=== PATIENT | female | born 1945 | race Caucasian/White ===

== ENCOUNTER → 2018-11-14 10:18 | Outpatient (CLI) | payer MEDICARE, OTHER, SELFPAY ==
--- NOTE | 2018-11-14 10:26 | US_ITS ---
STUDY: RENAL ULTRASOUND - COMPLETE REASON FOR EXAM: Female, 73 years old. Urinary tract infection TECHNIQUE: Ultrasound evaluation of the kidneys was performed with real-time and static arriaga-scale imaging. COMPARISON: None. FINDINGS: RIGHT KIDNEY: Normal location of the right kidney, which is normal in size. The right kidney measures 10.7 cm. There is a normal cortex of the right kidney. The renal cortex measures 1.3 cm. There is no right renal mass or cyst. There are no right renal calculi. There is no right hydronephrosis. DISTAL RIGHT URETER: There is non-visualization of the distal right ureter. There is no demonstrated right ureterovesical junction calculus. There is a visualized right ureteral jet. LEFT KIDNEY: Normal location of the left kidney, which is normal in size. The left kidney measures 11 cm. There is a normal cortex of the left kidney. The renal cortex measures 1.9 cm. There is no left renal mass or cyst. There are no left renal calculi. There is no left hydronephrosis. DISTAL LEFT URETER: There is non-visualization of the distal left ureter. There is no demonstrated left ureterovesical junction calculus. There is a visualized left ureteral jet. BLADDER: The distended urinary bladder has a volume of 188 ml. The empty urinary bladder has a volume of 71.4 ml. There is a normal wall thickness of the distended urinary bladder. There is no demonstrated mass within the urinary bladder. There are no demonstrated bladder calculi. There is post void residual of 71.4 mL. US/Kidney and Bladder IMPRESSION: Normal ultrasound of the kidneys Urinary retention with bladder postvoid residual of 71.4 mL Electronically Signed: Farhan Norton, at 23:28 EDT Tel , Service support ,
== END ==
PROVIDERS: Family Provider Family Medicine; PCP Family Medicine; Referring Provider Urology; Visit Provider Urology
DX: N39.0 Urinary tract infection, site not specified (principal)
CPT/HCPCS: 76770

== ENCOUNTER → 2018-12-19 08:07 | Outpatient (CLI) | payer MEDICARE, OTHER, SELFPAY ==
--- NOTE | 2018-12-19 08:08 | CT_ITS ---
STUDY: CT ABDOMEN AND PELVIS WITH CONTRAST REASON FOR EXAM: Female, 73 years old. Hematuria, frequent UTIs RADIATION DOSAGE (If Supplied By Facility): CTDIvol = ( 15.82 ) mGy, DLP = ( 2143.35 ) mGycm TECHNIQUE: Transaxial images were obtained from the dome of the diaphragm to the symphysis pubis without oral contrast. 100 IV Isovue 300 was administered. Sagittal and coronal images were reconstructed. Individualized dose optimization techniques were used for this CT. COMPARISON: None. FINDINGS: The visualized lung bases are unremarkable. The visualized portions of the heart are within normal limits. There is decreased attenuation of the liver consistent with steatosis. Normal gallbladder and extrahepatic biliary system. Normal spleen. Normal pancreas. Normal bilateral adrenal glands. Normal right kidney. Normal left kidney. Normal visualized stomach. Normal small intestine. Retained stool noted in the colon, scattered sigmoid diverticulosis, no CT evidence of acute diverticulitis. There is non-visualization of the appendix. There is diffuse atherosclerotic calcification of the abdominal aorta, without a demonstrated aneurysm. Normal inferior vena cava. Normal retroperitoneum. Normal urinary bladder. Uterus is still present, the endometrium cannot be accurately evaluated with CT. No suspicious cystic mass or free fluid. Normal abdominal wall. There are diffuse degenerative changes of the visualized lumbar spine, and pelvis. Replaced right hip joint free of complication CT/Abdomen/Pelvis WITH Contrast IMPRESSION: Fatty liver, no discrete lesion Scattered sigmoid diverticulosis, retained stool noted in the colon, no CT evidence of acute inflammatory process Uterus is still present, the endometrium cannot be accurately evaluated with CT. Electronically Signed: Danyel Penn MD at 10:15 EDT , Service support ,
[2018-12-19 08:30] LABS: CREATININE FINGERSTICK 0.7 mg/dL (0.55-1.02)
== END ==
PROVIDERS: Family Provider Family Medicine; PCP Family Medicine; Referring Provider Urology; Visit Provider Urology
DX: R31.9 Hematuria, unspecified (principal)
CPT/HCPCS: 74177; Q9967

== ENCOUNTER 2019-04-07 09:59 | Day surgery (SDC) | payer MEDICARE, OTHER, SELFPAY ==
[2018-12-27 15:27] VITALS: BMI 29.3
[2019-03-01 11:51] VITALS: BMI 29.3
--- NOTE | 2019-03-01 22:24 | PCM.HPOB.BLA ---
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 Is patient in pain?: No Allergies No Known Allergies Allergy (Verified 03/01/19 11:51) Medications aspirin 81 mg chewable tablet 81 mg PO DAILY 12/27/18 [History Confirmed 03/01/19] clobetasol 0.05 % topical ointment 1 applic TOPICAL QHS #30 g 12/27/18 [Rx Confirmed 03/01/19] hydrochlorothiazide 25 mg tablet 25 mg PO DAILY 12/27/18 [History Confirmed 03/01/19] levothyroxine 100 mcg tablet 100 mcg PO DAILY 12/27/18 [History Confirmed 03/01/19] naproxen 500 mg tablet 500 mg PO BID 12/27/18 [History Confirmed 03/01/19] Is last menstrual period known: No Post menopausal: Yes Patient : No : No [facility] Medical History Hypertension (Chronic) Surgical History Carpal tunnel syndrome, bilateral (Acute) History of total hip replacement (Acute) Status post left foot surgery (Acute) Social History (Updated 03/01/19 @ 21:30 by Latanya Jennings MD) Smoking Status: Never smoker alcohol intake: never substance use type: does not use caffeine: Yes what type of physical activity do you participate in: walking seatbelt use: always do you feel safe at home: Yes additional social history: Leon- Works at [employer] Patient is retired HPI [facility] BSO: Details: JOLLY CORDOVA is a 74 year old who presents for pelvic organ prolapse. she is having a combo case with dr woods Pregancy History 3 Elective abortions Hx Para 3 Spontaneous abortions Hx # Term Pregnancies Ectopic pregnancies Hx # Pregnancies Multiple births # of living children Past Pregnancies Del. Date Name GA/Weeks Outcome Route Bth Weight Infant Gen Labor Lgth Anesthesia Del Locatn Provider FOB Unknown 1966 Kyler live - full term Unknown 1968 Leon Martinez live - full term Unknown 1976 Alexis live - full term ROS Const Constitutional: Denies fatigue, fever(s), headache(s), increased appetite, poor appetite, weight gain or weight loss ENT ENT: Denies dizziness or dry mouth Cardio Card: Denies chest pain Resp Resp: Denies cough or dyspnea GI GI: Reports as per HPI; denies abdominal pain, constipation, nausea or vomiting : Reports as per HPI, urinary frequency and urinary urgency; denies difficulty urinating, painful urination, pelvic pain, urinary incontinence, urinary hesitancy, vaginal discharge, vaginal dryness, vaginal odor or vaginal itching Musc Musc: Reports joint pain Skin Skin/Breast: Denies hair loss, change in hair, dry skin, breast lump, breast pain or breast skin changes Neuro Neuro: Denies dizziness Psych Psych: Denies anxiety or depression Endo Endo: Denies cold intolerance, excessive sweating, heat intolerance or increased thirst Shady/Lymph Hematologic/Lymphatic: Denies easy bleeding, Denies easy bruising, Denies enlarged lymph nodes Exam Const General: cooperative, healthy appearing, comfortable, no acute distress, well developed Nutritional Appearance: average body habitus Orientation: alert [facility] Head: normal to inspection, normocephalic Ears: hearing grossly normal bilaterally, external ears normal Nose: external nose normal, nares normal Face and sinus: normal facial exam Neck Neck: normal visual inspection, no lymphadenopathy, trachea midline Thyroid: thyroid normal Chest Chest palpation & inspection: normal inspection of the chest Resp Effort & Inspection: normal respiratory effort Auscultation: clear to auscultation bilaterally Cardio Rate: regular rate Rhythm: regular rhythm Heart Sounds: S1 normal, S2 normal GI Inspection: normal to inspection, non-distended Palpation: soft, no hepatosplenomegaly General: bladder normal to palpation External Female Exam: normal external appearance, normal appearance of the urethra Urethra: normal appearance of the urethra Speculum Exam - Vagina: normal appearance of the vagina, normal vaginal discharge Speculum Exam - Cervix: normal appearance of the cervix, nontender Bimanual Exam- Vagina & Uterus: bladder normal to palpation, No cervical tenderness Bimanual Exam- Adnexa, other: normal adnexae, adnexae mobile, no adnexal masses, rectocele, cystocele (grade III), vaginal apex descent (grade III) Pelvic Support: cystocele (grade III), rectocele, vaginal apex descent (grade III) Musc Cervical Spine: other Other: gross motor intact no deficits, full bilateral strength Skin General: no rashes or lesions noted Neuro General: alert, awake, moves all extremities, no focal motor deficits Motor: muscle tone normal throughout Extrem General: normal to inspection, no pedal edema Psych Appearance: grossly normal Mental Status: mental status grossly normal Affect: normal affect Speech and Movement: speech and movement normal Assessment & Plan Problems 1. Incomplete uterovaginal prolapse N81.2 combo case with Azael [facility] BSO Plan After discussing the patient's diagnosis and treatment plan options, patient wishes to proceed with surgical management. I have discussed with the patient the risks, benefits, and alternatives of the procedure which include but are not limited to risks of anesthesia, bleeding, infection, possible damage to bowel, bladder, or surrounding vasculature which could lead to additional surgery to evaluate any complications. Patient agrees to procedure and wishes to proceed. ACOG/uptodate references given for additional information regarding procedure. Coding Level of Care Code No Charge Diagnoses Incomplete uterovaginal prolapse N81.2 ??Prolapse type: incomplete uterovaginal prolapse
--- NOTE | 2019-04-01 04:46 | PCM.HPOB.BLA ---
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 Is patient in pain?: No Allergies No Known Allergies Allergy (Verified 03/01/19 11:51) Medications aspirin 81 mg chewable tablet 81 mg PO DAILY 12/27/18 [History Confirmed 03/01/19] clobetasol 0.05 % topical ointment 1 applic TOPICAL QHS #30 g 12/27/18 [Rx Confirmed 03/01/19] hydrochlorothiazide 25 mg tablet 25 mg PO DAILY 12/27/18 [History Confirmed 03/01/19] levothyroxine 100 mcg tablet 100 mcg PO DAILY 12/27/18 [History Confirmed 03/01/19] naproxen 500 mg tablet 500 mg PO BID 12/27/18 [History Confirmed 03/01/19] Is last menstrual period known: No Post menopausal: Yes Patient : No : No [facility] Medical History Hypertension (Chronic) Surgical History Carpal tunnel syndrome, bilateral (Acute) History of total hip replacement (Acute) Status post left foot surgery (Acute) Social History (Updated 03/01/19 @ 21:30 by Latanya Jennings MD) Smoking Status: Never smoker alcohol intake: never substance use type: does not use caffeine: Yes what type of physical activity do you participate in: walking seatbelt use: always do you feel safe at home: Yes additional social history: Leon- Works at [employer] Patient is retired HPI [facility] BSO: Details: JOLLY CORDOVA is a 74 year old who presents for pelvic organ prolapse. she is having a combo case with dr woods Pregancy History 3 Elective abortions Hx Para 3 Spontaneous abortions Hx # Term Pregnancies Ectopic pregnancies Hx # Pregnancies Multiple births # of living children Past Pregnancies Del. Date Name GA/Weeks Outcome Route Bth Weight Gen Labor Lgth Anesthesia Del Locatn Provider FOB Unknown 1966 Kyler live - full term Unknown 1968 Leon Martinez live - full term Unknown 1976 Alexis live - full term ROS Const Constitutional: Denies fatigue, fever(s), headache(s), increased appetite, poor appetite, weight gain or weight loss ENT ENT: Denies dizziness or dry mouth Cardio Card: Denies chest pain Resp Resp: Denies cough or dyspnea GI GI: Reports as per HPI; denies abdominal pain, constipation, nausea or vomiting : Reports as per HPI, urinary frequency and urinary urgency; denies difficulty urinating, painful urination, pelvic pain, urinary incontinence, urinary hesitancy, vaginal discharge, vaginal dryness, vaginal odor or vaginal itching Musc Musc: Reports joint pain Skin Skin/Breast: Denies hair loss, change in hair, dry skin, breast lump, breast pain or breast skin changes Neuro Neuro: Denies dizziness Psych Psych: Denies anxiety or depression Endo Endo: Denies cold intolerance, excessive sweating, heat intolerance or increased thirst Shady/Lymph Hematologic/Lymphatic: Denies easy bleeding, Denies easy bruising, Denies enlarged lymph nodes Exam Const General: cooperative, healthy appearing, comfortable, no acute distress, well developed Nutritional Appearance: average body habitus Orientation: alert [facility] Head: normal to inspection, normocephalic Ears: hearing grossly normal bilaterally, external ears normal Nose: external nose normal, nares normal Face and sinus: normal facial exam Neck Neck: normal visual inspection, no lymphadenopathy, trachea midline Thyroid: thyroid normal Chest Chest palpation & inspection: normal inspection of the chest Resp Effort & Inspection: normal respiratory effort Auscultation: clear to auscultation bilaterally Cardio Rate: regular rate Rhythm: regular rhythm Heart Sounds: S1 normal, S2 normal GI Inspection: normal to inspection, non-distended Palpation: soft, no hepatosplenomegaly General: bladder normal to palpation External Female Exam: normal external appearance, normal appearance of the urethra Urethra: normal appearance of the urethra Speculum Exam - Vagina: normal appearance of the vagina, normal vaginal discharge Speculum Exam - Cervix: normal appearance of the cervix, nontender Bimanual Exam- Vagina & Uterus: bladder normal to palpation, No cervical tenderness Bimanual Exam- Adnexa, other: normal adnexae, adnexae mobile, no adnexal masses, rectocele, cystocele (grade III), vaginal apex descent (grade III) Pelvic Support: cystocele (grade III), rectocele, vaginal apex descent (grade III) Musc Cervical Spine: other Other: gross motor intact no deficits, full bilateral strength Skin General: no rashes or lesions noted Neuro General: alert, awake, moves all extremities, no focal motor deficits Motor: muscle tone normal throughout Extrem General: normal to inspection, no pedal edema Psych Appearance: grossly normal Mental Status: mental status grossly normal Affect: normal affect Speech and Movement: speech and movement normal Assessment & Plan Problems 1. Incomplete uterovaginal prolapse N81.2 combo case with Azael [facility] BSO Plan After discussing the patient's diagnosis and treatment plan options, patient wishes to proceed with surgical management. I have discussed with the patient the risks, benefits, and alternatives of the procedure which include but are not limited to risks of anesthesia, bleeding, infection, possible damage to bowel, bladder, or surrounding vasculature which could lead to additional surgery to evaluate any complications. Patient agrees to procedure and wishes to proceed. ACOG/uptodate references given for additional information regarding procedure. Coding Level of Care Code No Charge Diagnoses Incomplete uterovaginal prolapse N81.2 ??Prolapse type: incomplete uterovaginal prolapse
[2019-04-07] VITALS (11 sets, daily range): BP systolic 107–133; BP diastolic 55–79; PULSE 65–85; RESP 16–18; TEMP 36.2–37.6; O2SAT 96–100; BMI 29.5; BMI 29.9
--- NOTE | 2019-04-07 10:15 | EKG12_ITS ---
Test Reason : PRE OP Blood Pressure : / mmHG Vent. Rate : 074 BPM Atrial Rate : 074 BPM P-R Int : 134 ms QRS Dur : 090 ms QT Int : 408 ms P-R-T Axes : 062 020 062 degrees QTc Int : 452 ms Normal sinus rhythm Nonspecific ST and T wave abnormality Abnormal ECG No previous ECGs available Confirmed by VALARIE CARROLL, SHAAN ([id number]), food editor ARSEN HALL ([id number]) on 04/18/2019 1:39:19 PM Referred By: Latanya Jennings Confirmed By:ADOLFO SHEPPARD MD
[2019-04-07 10:37] LABS: Hematocrit 43.4 % (37-47); Hemoglobin 14.3 g/dL (12.0-15.0); Mean Corp Hgb Conc 32.9 g/dL (32-36); Mean Corpuscular Hgb 30.3 pg (27.0-32.0); Mean Corpuscular Volume 91.9 fL (81-99); Mean Platelet Vol. 10.1 fl (6.2-12.0); Platelet Count 308 K/mm3 (150-450); RBC Distribution Width SD 47.6 fl (35.1-43.9); Red Blood Count 4.72 M/mm3 (4.2-5.4); White Blood Count 10.2 K/mm3 (4.4-11.0)
[2019-04-07 11:00] LABS: AST(SGOT) 25 U/L (15-37); Alanine Aminotransfer ALT/SGPT 29 U/L (13-56); Albumin, Serum 4.2 g/dL (3.2-5.0); Alkaline Phosphatase 66 U/L (45-117); Anion Gap 7 (5-15); BUN 16 mg/dL (7-18); BUN/Creat Ratio 13.4 RATIO (10-20); Bilirubin, Direct 0.11 mg/dL (0.00-0.30); Calcium,Total 9.2 mg/dL (8.5-10.1); Chloride 104 mmol/L (98-107); Creatinine, Serum 1.19 mg/dL (0.55-1.02); EST Glomerular Filtration Rate 47 mL/min (>60); Est Glom Filt Rate - Afr Amer 57 mL/min (>60); Globulin 4.2 g/dL (2.2-4.2); Glucose 84 mg/dL (74-106); Potassium 3.6 mmol/L (3.5-5.1); Protein, Total 8.4 g/dL (6.4-8.2); Sodium Level 138 mmol/L (136-145); Thyroid Stim Hormone (TSH) 0.83 uIU/mL (0.358-3.74)
[2019-04-07] MEDS: Gabapentin 600 MG Tablet PO (11:03)
[2019-04-07] MEDS: Acetaminophen 500 MG Tablet 1000 MG PO ×3 (11:03→23:50)
[2019-04-07 11:16] LABS: Bedside Glucose 92 mg/dL (70-110)
[2019-04-07] MEDS: Magnesium Sulfate 4gm/100mL 4 GM/100 ML IV.SOLN. IV (11:20)
[2019-04-07] MEDS: Lactated Ringers 1,000 ML 100 ML IV ×2 (11:20→14:15)
--- NOTE | 2019-04-07 12:00 | HYST_PTH ---
PATIENT: JOLLY CORDOVA [place] [facility] [place][id number] AGE/SX: 74/F ROOM: RE04/07/[address]: Dr. Latanya Jennings MD : [id number] BED: DIS: 04/08/2019 SPEC #: [id number] RECD: 04/10/19 07:38 STATUS: DIPTI REJules #: [id number] MISSY: 04/07/19 12:[address]: Latanya Jennings DEPT: SURGICAL PATHOLOGY RECD BY: Tim Choi ENTERED: 04/10/19 09:32 SP TYPE: HYSTERECT OTHR DR: MD Dr. Willian Alaniz MD Tissues: Uterus, NOS Procedures: Surgery Specimen Level V HEADER OPERATION: ERAS, vaginal hysterectomy PRE-OP DIAGNOSIS: Incomplete uterovaginal prolapse TISSUE SUBMITTED: Uterus MICROSCOPIC DIAGNOSIS Uterus, vaginal hysterectomy: Cervix - focal minimal chronic inflammation. Endometrium - weakly proliferative endometrium with cystic changes. Myometrium - focal superficial adenomyosis. - A minute submucosal leiomyoma (0.3 cm in greatest dimension). - Vascular calcifications. DARLIN:shelby 04/11/19 MICROSCOPIC DESCRIPTION Slides are reviewed. GROSS DESCRIPTION Received in fixative is one container labeled with the patient's name and designated uterus. The specimen consists of a uterus with attached cervix without fallopian tubes and ovaries measuring 9.5 x 4 x 3.2 cm and weighing 61 gm. The ectocervix is unremarkable. The cervical os is oval in contour. The endocervical canal measures 3 cm in length and is grossly unremarkable. The triangular endometrial cavity measures 2.5 x 1 cm. The hurt endometrium measures <1 cm in greatest thickness. The myometrium measures 1.2 cm in average thickness and is free of mass lesions. Belt Molder sections are submitted in six cassettes as follows: 1 - anterior cervix, 2 - posterior cervix, 3 & 4 - anterior myometrial wall, 5 & 6 - posterior myometrial wall. / AM:shelby 04/10/19 TC:5 CPT: 17662
[2019-04-07] MEDS: Lubricating Jelly 60 GM Tube 30 GM TOPICAL (12:05)
[2019-04-07] MEDS: Vasopressin 20 UNITS/ML Vial (13:30)
[2019-04-07] MEDS: Estrogens,Conj. 1 Tube 1 DOSE (13:50)
--- NOTE | 2019-04-07 14:10 | PCM.OPRPT ---
Problem List (1) Prolapse of female pelvic organs Status: Chronic Qualifiers: Comment: combo case with Azael [facility] BSO Report of Operation Date of Procedure: 04/07/19 Pre-Operative Diagnosis: prolapse Post-Operative Diagnosis: same Surgery/Procedure Performed:: tvh Description of Surgical Findings:: nl uterus, nl ovaries humanities instructor: Thalia Addison Type of Anesthesia:: General Special Medications: none Specimen's removed: uterus Drains: hassan Estimated Blood Loss (mL): 50 Fluids Replaced: crystalloid Description of Procedure: Patient was taken to the operating room and was placed under general anesthesia was prepped and draped in normal sterile fashion in the dorsal lithotomy position. Preoperative antibiotics and SCDs and Hassan catheter was placed inside the bladder. Weighted speculum was placed in the vagina and the anterior and posterior lip of the cervix was grasped with 2 Eufemia clamps and circumferentially injected with dilute vasopressin. A circumferential incision was made with a scalpel and the posterior cul-de-sac was entered into sharply and a longneck speculum was placed. The anterior cul-de-sac was also dissected down and entered into sharply and the uterosacral ligaments were clamped cut and suture ligated bilaterally followed by the cardinal ligaments which were Clamped cut and suture ligated bilaterally with 0 Monocryl. The uterus serially descended and progressive bites were taken bilaterally up to the level of the utero-ovarian ligament bilaterally which was clamped transected and double ligated with 0 Monocryl suture and 0 Vicryl free tie. Bilateral fallopian tubes and ovaries were well visualized and noted be within normal limits but unable to be safely reached to be removed. Excellent hemostasis was noted. The vagina was closed with [id number] 0 Vicryl pop offs including the posterior and anterior peritoneum in the reapproximation. Excellent hemostasis was noted. All instruments removed from the vagina clear urine was noted at the end of the procedure and patient was awoken and taken recovery in stable condition. Grafts/Implants Used: none - Complications none - Admit VTE Documentation VTE Present on Admission: No Multi Select Codes - Urinary/Genital Urinary/Genital CPT Codes: 78109 TVH <250 gr uterus
--- NOTE | 2019-04-07 14:33 | PCM.OPRPT ---
Problem List (1) Prolapse of female pelvic organs Status: Chronic Qualifiers: Comment: combo case with Azael [facility] Report of Operation Date of Procedure: 04/07/19 Pre-Operative Diagnosis: incomplete uterovaginal prolapse Post-Operative Diagnosis: same Surgery/Procedure Performed:: posterior repair, sacrospinous ligament fixation, cystoscopy Description of Surgical Findings:: no complications, bilateral ureteral jets visualized Type of Anesthesia:: General Estimated Blood Loss (mL): 20cc Description of Procedure: The patient is a 74-year-old female presented to the office with pelvic organ prolapse desiring surgical intervention. She underwent urodynamics and office cystoscopy in preparation and began using vaginal estrogen replacement. Informed consent was obtained. The patient was taken to the operating room, placed on the operating room table. Anesthesia monitored the head, neck, airway, IV access and vital signs throughout the case. Once anesthesia was appropriately administered the patient was prepped and draped in usual sterile fashion. She was placed into dorsal lithotomy in Trendelenburg position. A Rosas catheter was inserted and the bladder was drained. A vaginal hysterectomy was performed. After closure of the vaginal cuff, the posterior vaginal wall was injected submucosally with 1% lidocaine with epinephrine. A midline incision was made in both sharp and blunt dissection ensued until the rectovaginal fascia was identified. On the patient's right side the sacrospinous ligament was identified and freed from surrounding tissues. The Capio device was used with an Ethibond suture to obtain support from the sacrospinous ligament approximately 2 fingerbreadths medial to the ischial spine. The suture was then brought out full-thickness fashion through the apex of the vaginal wall. The defect in the rectovaginal fascia was fixed using interrupted 2-0 Vicryl suture. A rectal exam was done to aid in correct positioning of the sutures. A perineoplasty was performed giving more support to the perineal body. At this time the posterior vaginal mucosa was closed using running interlocking 2-0 Vicryl. A cystourethroscopy revealed bilateral ureteral jets and no foreign body within the urinary bladder. Once again no bladder mucosal abnormalities were identified. The Rosas catheter was reinserted. Some mild oozing at the Ethibond sacrospinous ligament suture was identified. The vagina was packed using estrogen cream and vaginal packing. The patient was awakened taken to recovery room in good condition. Grafts/Implants Used: none - Complications none - Admit VTE Documentation VTE Present on Admission: Yes VTE Mechan Device Prophylaxis: SCD's VTE Pharm Prophylaxis ordered?: Yes
[2019-04-07] MEDS: Ketorolac 30 MG/ML Syringe IV ×2 (16:34→23:52)
[2019-04-07] MEDS: Lactated Ringers 1,000 ML 70 ML IV (20:14)
[2019-04-07] MEDS: Docusate Sodium 100 MG Capsule PO (22:46)
[2019-04-08 01:50] VITALS: BP 107/61; PULSE 84; RESP 18; TEMP 37; O2SAT 96
[2019-04-08] MEDS: Acetaminophen 500 MG Tablet 1000 MG PO ×2 (05:42→11:53)
[2019-04-08] MEDS: Levothyroxine 100 MCG Tablet PO (05:42)
[2019-04-08] MEDS: Ketorolac 30 MG/ML Syringe IV ×2 (05:43→11:54)
[2019-04-08 07:02] VITALS: O2SAT 94
[2019-04-08 07:19] LABS: Hematocrit 37.2 % (37-47); Hemoglobin 12.2 g/dL (12.0-15.0); Mean Corp Hgb Conc 32.8 g/dL (32-36); Mean Corpuscular Hgb 30.6 pg (27.0-32.0); Mean Corpuscular Volume 93.2 fL (81-99); Mean Platelet Vol. 10.9 fl (6.2-12.0); Platelet Count 274 K/mm3 (150-450); RBC Distribution Width CV 14.2 % (11.6-14.6); RBC Distribution Width SD 48.6 fl (35.1-43.9); Red Blood Count 3.99 M/mm3 (4.2-5.4); White Blood Count 19.1 K/mm3 (4.4-11.0)
[2019-04-08 07:35] VITALS: BP 126/44; PULSE 76; RESP 18; TEMP 36.8; O2SAT 95
[2019-04-08 07:37] LABS: Anion Gap 9 (5-15); BUN 18 mg/dL (7-18); BUN/Creat Ratio 14.8 RATIO (10-20); Calcium,Total 8.9 mg/dL (8.5-10.1); Chloride 103 mmol/L (98-107); Creatinine, Serum 1.22 mg/dL (0.55-1.02); EST Glomerular Filtration Rate 46 mL/min (>60); Est Glom Filt Rate - Afr Amer 55 mL/min (>60); Estimated Creatinine Clearance 34.41 ml/min; Glucose 126 mg/dL (74-106); Potassium 4.4 mmol/L (3.5-5.1); Sodium Level 137 mmol/L (136-145)
[2019-04-08] MEDS: Cephalexin 250 MG Capsule PO (07:45)
[2019-04-08] MEDS: Docusate Sodium 100 MG Capsule PO (07:45)
[2019-04-08] MEDS: hydroCHLOROthiazide 25 MG Tablet PO (07:46)
--- NOTE | 2019-04-08 08:31 | PN_ITS ---
Physical Exam Subjective: She is doing well this morning. Eating breakfast. She has already walked multiple times since the procedure. There is not been much bleeding, just a couple of pads, not soaked. Pain is controlled. No issues overnight. is fixing her boiler system at home. - Physical Exam Vital Signs Temp 98.3 F 04/08/19 07:35 Pulse 76 04/08/19 07:35 Resp 18 04/08/19 07:35 BP 126/44 H 04/08/19 07:35 Pulse Ox 95 04/08/19 07:35 Intake & Output 04/06/19 04/07/19 04/08/19 23:59 23:59 23:59 Intake Total 2160.78 / 2760.78 1000 / 1000 Output Total 400 / 1200 1600 / 1600 Balance 1760.78 / 1560.78 -600 / -600 Weight: 79 kg Intake: Oral 360 / 960 1000 / 1000 Intake, IV Amount 1800.78 / 1800.78 0 / 0 Cefotan 2 GM In 0.9% Normal 100 / 100 Saline 100 ML @ 200 mls/hr IV PREOP ONE Rx#:[id number] Ketalar 39 MG In Syringe 1 ML @ 0.78 / 0.78 0.5 MG/KG/MIN 46.8 mls/hr IV . Q1M ONE Rx#:[id number] Lactated Ringers 1,000 ML @ 100 1600 / 1600 0 / 0 mls/hr IV .Q10H [facility] Rx#: [id number] Magnesium Sulfate 4gm/100mL 4 100 / 100 GM/100 ML4 gm In 100 ml @ 200 mls/hr IV PREOP ONE Rx#: [id number] Output: Urine 400 / 1200 1600 / 1600 General: Alert, Oriented x3 HEENT: Atraumatic Oral: Moist Mucosa Neck: Supple Lungs: Normal air movement Cardiovascular: Regular rate Abdomen: Soft Neurological: Cranial nerves II-XII grossly intact Psych/Mental Status: Normal Affect Comment: hassan and vaginal packing removed. Laboratory Tests Past 24 Hrs 04/07/19 04/07/19 04/07/19 10:27 10:27 10:27 WBC 10.2 RBC 4.72 Hgb 14.3 Hct 43.4 MCV 91.9 MCH 30.3 MCHC 32.9 RDW Std Deviation 47.6 H RDW Coeff of Royal 14.0 Plt Count 308 MPV 10.1 Sodium 138 Potassium 3.6 Chloride 104 Carbon Dioxide 27.0 Anion Gap 7 BUN 16 Creatinine 1.19 H Estim Creat Clear Calc Est GFR (MDRD) Af Amer 57 L Est GFR (MDRD) Non-Af 47 L BUN/Creatinine Ratio 13.4 Glucose 84 Calcium 9.2 Total Bilirubin 0.40 Direct Bilirubin 0.11 AST 25 ALT 29 Alkaline Phosphatase 66 Total Protein 8.4 H Albumin 4.2 Globulin 4.2 TSH 0.83 Blood Type A POSITIVE Antibody Screen NEGATIVE 04/08/19 04/08/19 06:41 06:41 WBC 19.1 H RBC 3.99 L Hgb 12.2 Hct 37.2 MCV 93.2 MCH 30.6 MCHC 32.8 RDW Std Deviation 48.6 H RDW Coeff of Royal 14.2 Plt Count 274 MPV 10.9 Sodium 137 Potassium 4.4 Chloride 103 Carbon Dioxide 25.0 Anion Gap 9 BUN 18 Creatinine 1.22 H Estim Creat Clear Calc 34.41 Est GFR (MDRD) Af Amer 55 L Est GFR (MDRD) Non-Af 46 L BUN/Creatinine Ratio 14.8 Glucose 126 H Calcium 8.9 Total Bilirubin Direct Bilirubin AST ALT Alkaline Phosphatase Total Protein Albumin Globulin TSH Blood Type Antibody Screen Medical Necessity - Tobacco Use Smoking Status: Never smoker Tobacco Use: Non-smoker Assessment/Plan Home today after trial of void. Follow up with me in 2 weeks. No driving for 2 weeks, see D/C instructions for further restrictions.
--- NOTE | 2019-04-08 08:33 | DCINST_ITS ---
Discharge Diet: No Restrictions Discharge Activity: May Shower, - - no driving for 2 weeks no lifting over 5 pounds. No exercising, no strenuous activity. No intercourse. Nothing per vagina except continue vaginal estrogen cream. May resume sexual activity in: 8 weeks Call your doctor if you observe: Fever of 101 or Higher, Inability to urinate, Shortness of breath, Chest pain, Calf discomfort, Uncontrolled pain Allergies/Adverse Reactions: Allergies No Known Allergies Allergy (Verified 03/07/19 08:50) Medications to take at Discharge aspirin 81 mg chewable tablet 81 mg PO DAILY 12/27/18 clobetasol 0.05 % topical ointment 1 applic TOPICAL QHS #30 g 12/27/18 hydrochlorothiazide 25 mg tablet 25 mg PO DAILY 12/27/18 levothyroxine 100 mcg tablet 100 mcg PO DAILY 12/27/18 naproxen 500 mg tablet 500 mg PO DAILY 12/27/18 Calcium Citrate/Vitamin D3 [Calcium Cit 200-Vit D3 250 Tab] 1 ea PO DAILY 03/07/19 Cephalexin [Keflex] 250 mg PO DAILY 03/07/19 L.acidoph,Paracasei, B.lactis [Probiotic] 1 ea PO DAILY 03/07/19 Magnesium Oxide [Magnesium] 250 mg PO BID 03/07/19 Vitamin B Complex 1 ea PO DAILY 03/07/19 Naproxen [Naprosyn] 250 - 500 mg PO Q8H PRN PRN #30 tab 04/07/19 Oxycodone HCl/Acetaminophen [Percocet 5-325] 1 - 2 tab PO Q6H PRN PRN 7 Days #15 tab 04/07/19 The following prescriptions were given: Naproxen [Naprosyn] 250 - 500 mg PO Q8H PRN PRN #30 tab PRN Reason: MILD PAIN Prescription Printed Oxycodone HCl/Acetaminophen [Percocet 5-325] 1 - 2 tab PO Q6H PRN PRN 7 Days #15 tab PRN Reason: Pain Transmission Status: Received by [facility] Primary Care Physician: Willian Mondragon MD [Primary Care Provider] - Test Results: Test results from this visit will be discussed in further detail at your follow- up appointment, if applicable. Please Follow Up With: Thalia Addison MD When: 2 weeks, call for appt Proposed Discharge Date: 04/08/19
--- NOTE | 2019-04-08 09:01 | PN.OBGYN_ITS ---
Subjective: No CP, SOB. Pain controlled. No void yet. Tolerating diet. - Physical Exam Vitals/I&O's: Vital Signs Temp Pulse Resp BP Pulse Ox 98.3 F 76 18 126/44 H 95 04/08/19 07:35 04/08/19 07:35 04/08/19 07:35 04/08/19 07:35 04/08/19 07:35 Oxygen Flow Rate (L/min) 6 Oxygen Delivery Method Room Air Weight: 174 lb 2.643 oz Body Mass Index (BMI) 29.9 Intake and Output for Last 24 Hours 04/06/19 04/07/19 04/08/19 23:59 23:59 23:59 Intake Total 2160.78 / 2760.78 1000 / 1000 Output Total 400 / 1200 1600 / 1600 Balance 1760.78 / 1560.78 -600 / -600 General: Alert, Oriented x3 Abdomen: Soft, Non-Distended Laboratory Results 04/07/19 10:27: Sodium 138, Potassium 3.6, Chloride 104, Carbon Dioxide 27.0, Anion Gap 7, BUN 16, Creatinine 1.19 H, Est GFR (MDRD) Af Amer 57 L, Est GFR (MDRD) Non-Af 47 L, BUN/Creatinine Ratio 13.4, Glucose 84, Calcium 9.2, Total Bilirubin 0.40, Direct Bilirubin 0.11, AST 25, ALT 29, Alkaline Phosphatase 66, Total Protein 8.4 H, Albumin 4.2, Globulin 4.2, TSH 0.83 04/07/19 10:27: WBC 10.2, RBC 4.72, Hgb 14.3, Hct 43.4, MCV 91.9, MCH 30.3, MCHC 32.9, RDW Std Deviation 47.6 H, RDW Coeff of Royal 14.0, Plt Count 308, MPV 10.1 04/07/19 10:27: Blood Type A POSITIVE, Antibody Screen NEGATIVE 04/07/19 10:43: POC Glucose 92 04/08/19 06:41: WBC 19.1 H, RBC 3.99 L, Hgb 12.2, Hct 37.2, MCV 93.2, MCH 30.6, MCHC 32.8, RDW Std Deviation 48.6 H, RDW Coeff of Royal 14.2, Plt Count 274, MPV 10.9 04/08/19 06:41: Sodium 137, Potassium 4.4, Chloride 103, Carbon Dioxide 25.0, Anion Gap 9, BUN 18, Creatinine 1.22 H, Estim Creat Clear Calc 34.41, Est GFR (MDRD) Af Amer 55 L, Est GFR (MDRD) Non-Af 46 L, BUN/Creatinine Ratio 14.8, Glucose 126 H, Calcium 8.9 Current Medications Acetaminophen (Tylenol) 1,000 mg PO Q6 [facility] Last Admin: 04/08/19 05:42 Dose: 1,000 mg Documented by: Cephalexin (Keflex) 250 mg PO DAILY [facility] Last Admin: 04/08/19 07:45 Dose: 250 mg Documented by: Docusate Sodium (Colace) 100 mg PO BID [facility] Last Admin: 04/08/19 07:45 Dose: 100 mg Documented by: Hydrochlorothiazide (Hctz) 25 mg PO DAILY [facility] Last Admin: 04/08/19 07:46 Dose: 25 mg Documented by: Lactated Ringer's () 1,000 mls @ 70 mls/hr IV .[id number] [facility] Stop: 04/08/19 14:34 Last Admin: 04/07/19 20:14 Dose: 70 mls/hr Documented by: Sodium Chloride () 250 mls @ 15 mls/hr IV .[id number] PRN PRN Reason: Saline Flush Ketorolac Tromethamine (Toradol) 30 mg IV Q6 [facility] Stop: 04/09/19 00:01 Last Admin: 04/08/19 05:43 Dose: 30 mg Documented by: Levothyroxine Sodium (Synthroid) 100 mcg PO DAILY@0600 [facility] Last Admin: 04/08/19 05:42 Dose: 100 mcg Documented by: Magnesium Oxide (Mag-Ox 400) 400 mg PO DAILY PRN PRN PRN Reason: Constipation Nutritional Formula (Lactose Free) (Ensure Enlive) 120 ml PO TIDCM [facility] Last Admin: 04/08/19 07:43 Dose: 120 ml Documented by: Ondansetron HCl (Zofran Odt) 4 mg PO Q6H PRN PRN PRN Reason: NAUSEA Oxycodone HCl (Oxyir) 5 - 10 mg PO Q4H PRN PRN PRN Reason: Pain Score 4-10/10 Sodium Chloride () 10 - 40 ml IV UD PRN PRN Reason: SALINE FLUSH Medical Necessity - Tobacco Use Smoking Status: Never smoker Tobacco Use: Non-smoker Assessment/Plan TV with combination case Dr. Addison postop day #1 Routine care. Home today and Dr. Addison to discharge.
--- NOTE | 2019-04-08 11:41 | NURSING ---
Dr Addison notified of pt void 100ml, bladder scan = 166.
[2019-04-08] MEDS: 0.9% Saline Lock 10 ML Syringe IV (11:54)
[2019-04-08 12:25] VITALS: BP 126/44; PULSE 76; RESP 18; TEMP 36.8; O2SAT 95
--- NOTE | 2019-04-08 12:39 | NURSING ---
void not measured, pt did not have hat in toilet
== END 2019-04-08 12:25 | disposition home or self-care (01) ==
LOC: SDC 09:59 → AC 10:01 → MS3 14:13
PROVIDERS: Anesthesiology; Urology; Family Provider Family Medicine; PCP Family Medicine; Referring Provider Obstetrics & Gynecology; Visit Provider Obstetrics & Gynecology
PROC: (CPT 58260; principal; 2019-04-07 11:40)
PROC: (CPT 57260; 2019-04-07 11:40)
DX: N81.2 Incomplete uterovaginal prolapse (principal); D25.0 Submucous leiomyoma of uterus; N80.0 Endometriosis of uterus; Z79.82 Long term (current) use of aspirin; Z79.899 Other long term (current) drug therapy; I10 Essential (primary) hypertension
CPT/HCPCS: 00942; 57250; 58260; 36415; 80048; 80076; 82962; 84443; 85027; 86850; 86900; 86901; 88307; 93005; 99251; J7120; A4216; C1758; G0463; J2405